=== PATIENT | female | born 1970 | race Caucasian/White ===

== ENCOUNTER 2018-03-10 02:22 | Inpatient (IN) | payer OTHER ==
[~2018-03-10] VITALS: Ht 149.9 cm; Wt 62.1 kg
[2018-03-10 05:00] VITALS: BP 97/58
[2018-03-10] MEDS ORDERED: Z GUARD REMEDY 2 OZ OINT TP PRN (05:30)
[2018-03-10] MEDS ORDERED: MAGNESIUM HYDROXIDE 30 ML UDC PO PRN (05:30)
[2018-03-10] MEDS ORDERED: HYDROCODONE/APAP 5/325MG 1 EACH TABLET PO PRN (05:30)
[2018-03-10] MEDS ORDERED: MAG HYDROX/AL HYDROX/SIMETH 30 ML UDC PO PRN (05:30)
--- NOTE | 2018-03-10 06:00 | NUR ---
RECEIVED PT DIRECT ADMIT FROM [facility] ER, PT ALERT,ORIENTED, AMBULATORY, C/O PAIN IN THE ABDOMEN ,FEVER,NAUSEA. PT CT SEEN WAS COLITIS. PT WITH 8/10 PAIN MORPHINE GIVEN AND ZOFRAN, STARTED IV FLUID, PT GIVEN JELLO AND PT STATED SHE VOMITED FROM IT, SKIN INTACT EXCEPT WITH REDNESS IN THE LEFT LEG FROM SPIDER BITE.,VSS,AFEBRILE,WILL CONTINUE TO MONITOR.
[2018-03-10] MEDS: IV NS 0.9% 1,000 ML IV PRN ×2 (06:27→06:47)
[2018-03-10] MEDS ORDERED: METRONIDAZOLE 500MG/ NS 100ML 100 ML IV ONE (06:36)
[2018-03-10] MEDS: MORPHINE SULFATE INJ 2 MG/ML DISP.SYRIN IV PRN ×3 (06:47→21:16)
[2018-03-10] MEDS: ONDANSETRON HCL/PF 4 MG/2 ML VIAL IVP PRN ×3 (06:47→21:15)
[2018-03-10] MEDS: METRONIDAZOLE 500MG/ NS 100ML 500 MG in PREMIX 1 EA IV SCH ×3 (06:48→17:10)
[2018-03-10 06:49] LABS: BASOPHILS % (AUTO) 0.2 % (0.0-2.0); EOSINOPHILS % (AUTO) 0.2 % (0.0-6.0); HEMATOCRIT 37 % (33-45); HEMOGLOBIN 12.5 g/dL (11.5-14.8); LYMPHOCYTES # (AUTO) 1.1 /CMM (0.8-4.8); LYMPHOCYTES % (AUTO) 12.3 % (20.0-44.0); MEAN CORPUSCULAR HEMOGLOBIN 33 PG (26.0-33.0); MEAN CORPUSCULAR HGB CONC 34 g/dl (31.0-36.0); MEAN CORPUSCULAR VOLUME 99 fL (82-100); MONOCYTES # (AUTO) 0.3 /CMM (0.1-1.30); MONOCYTES % (AUTO) 3.1 % (2.0-12.0); NEUTROPHILS # (AUTO) 7.8 /CMM (1.8-8.9); NEUTROPHILS % (AUTO) 84.2 % (43.0-81.0); PLATELET COUNT (AUTO) 123 /CMM (150-450); RDW COEFFICIENT OF VARIATION 12.2 (11.5-15.0); RED BLOOD CELL COUNT(AUTO) 3.73 MIL/uL (4.0-5.2); WHITE BLOOD COUNT (AUTO) 9.3 K/uL (4.3-11.0)
[2018-03-10 07:06] LABS: CALCIUM, SERUM 7.6 mg/dL (8.5-10.1); CREATININE 0.7 mg/dL (0.6-1.3); POTASSIUM 3.3 mmol/L (3.5-5.1)
[2018-03-10 07:10] LABS: THYROID STIMULATING HORMONE 1.134 uIU/mL (0.358-3.74)
[2018-03-10 07:16] LABS: ALBUMIN 3.3 g/dL (3.4-5.0); BILIRUBIN,TOTAL 0.5 mg/dL (0.2-1.0); MAGNESIUM 1.8 mg/dL (1.8-2.4); PHOSPHORUS 3.7 mg/dL (2.5-4.9); TOTAL PROTEIN, SERUM 7.1 g/dL (6.4-8.2)
--- NOTE | 2018-03-10 07:40 | NUR ---
MS RN OPENING NOTES RECEIVED PT LAYING IN BED SLEEPING COMFORTABLY. PT IS EASILY AROUSABLE. A/O X4, AFEBRILE. RESPIRATIONS ARE EVEN AND UNLABORED, NOT IN ANY ACUTE DISTRESS NOTED. NO C/O SOB, NO N/V NOTED. PT STATES PAIN IS TOLERABLE AND WILL WAIT FOR WHEN THE NEXT PAIN MEDICATION IS DUE. IV SITE TO RAC INTACT, DRESSING KEPT CLEAN AND DRY. NO INFILTRATION NOTED. IV FLUIDS INFUSING AT 75MLHR, DRESSING KEPT CLEAN AND DRY. NO INFILTRATION NOTED. SAFETY MEASURES ARE IN PLACE. INSTRUCTED PT TO USE CALL LIGHT WHEN ASSISTANCE IS NEEDED, CALL LIGHT IS LEFT WITHIN REACH. WILL CONTINUE TO MONITOR THROUGHOUT SHIFT FOR CONTINUITY OF CARE.
[2018-03-10 08:00] VITALS: BP 91/51
[2018-03-10] MEDS: CEFTRIAXONE 1 G in IV NS 0.9% 50 ML IV SCH (08:29)
[2018-03-10] MEDS: POTASSIUM CHLORIDE 20 MEQ POWDER PACKET PO SCH ×2 (11:09→11:14)
[2018-03-10] MEDS: ACETAMINOPHEN 325 MG TABLET PO PRN (15:23)
[2018-03-10 16:00] VITALS: BP 85/46
--- NOTE | 2018-03-10 18:27 | NUR ---
MS RN CLOSING NOTES ALL DUE MEDS GIVEN, NEEDS MET AND RENDERED. PT IS MED COMPLIANT. PT REMAINS A/O X4, RESPIRATIONS ARE EVEN AND UNLABORED, NOT IN ANY ACUTE DISTRESS NOTED. NO C/O SOB, N/V. PT ABLE TO MAKE NEEDS KNOWN. IV SITE INTACT, NO INFILTRATION NOTED. DRESSING KEPT CLEAN AND DRY. IV FLUIDS INFUSING AT 75ML/HR, TOLERATING WELL. 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 SAFETY MEASURES ARE IN PLACE. REMINDED PT TO USE CALL LIGHT WHEN ASSISTANCE IS NEEDED, CALL LIGHT IS LEFT WITHIN REACH. WILL ENDORSE TO NEXT SHIFT FOR CONTINUITY OF CARE.
--- NOTE | 2018-03-10 19:05 | NUR ---
MS RN NOTES Report received. Patient received in bed, resting comfortably, easily aroused. Alert and oriented x4, verbally responsive. Denies any pain at the moment. Offered assistance but patient stated, "I just want to rest." IV on right AC with NS @75ml/hr noted. On antibiotic treatment. Safety measures in place. will continue to monitor and assess patient
[2018-03-10 22:13] VITALS: BP 105/58
[2018-03-10 23:37] LABS: APPEARANCE,URINE CLEAR (CLEAR); BILIRUBIN,URINE NEGATIVE (NEGATIVE); BLOOD, URINE NEGATIVE Ery/uL (NEGATIVE); COLOR,URINE YELLOW (YELLOW); KETONES,URINE NEGATIVE (NEGATIVE); LEUKOCYTE ESTERASE ,URINE NEGATIVE (NEGATIVE); NITRITE, URINE NEGATIVE (NEGATIVE); PROTEIN,URINE NEGATIVE (NEGATIVE); UGLUCOSE NEGATIVE (NEGATIVE); UROBILINOGEN,URINE 0.2 EU/dL (0.2)
[2018-03-11] MEDS: METRONIDAZOLE 500MG/ NS 100ML 500 MG in PREMIX 1 EA IV SCH ×5 (00:06→23:28)
[2018-03-11] MEDS: IV NS 0.9% 1,000 ML IV PRN ×2 (00:06→17:22)
[2018-03-11] MEDS: ACETAMINOPHEN 325 MG TABLET PO PRN (00:06)
--- NOTE | 2018-03-11 00:16 | NUR ---
MS RN - PRN NOTES Patient complained of feeling warm. Checked temp = 99.9F. Patient requested for tylenol now so that she could go to sleep and rest. Tylenol 650mg PO given. Will recheck temp
[2018-03-11] MEDS: ONDANSETRON HCL/PF 4 MG/2 ML VIAL IVP PRN ×3 (03:45→16:54)
--- NOTE | 2018-03-11 05:37 | NUR ---
MS RN NOTES Patient in bed, resting, easily aroused. Alert and oriented x4, verbally responsive. Patient continues to complain of nausea and pain (slightly improved with morphine). Patient able to state desire and needs. Continue on antibiotic treatment and hydration for colitis/sepsis and pain mgmt for fibromyalgia as planned. Continue clear liquids, advance as tolerated. IV on right antecubital 20g: patent and intact with NS @75ml/hr running. All needs provided and met. Safety measures in place. Bed in lowest position with call light within reach. Will continue to monitor and assess patient
[2018-03-11] MEDS: MORPHINE SULFATE INJ 2 MG/ML DISP.SYRIN IV PRN (05:55)
[2018-03-11 06:48] LABS: CREATININE 0.8 mg/dL (0.6-1.3); MAGNESIUM 1.8 mg/dL (1.8-2.4); PHOSPHORUS 3.5 mg/dL (2.5-4.9); POTASSIUM 3.4 mmol/L (3.5-5.1)
[2018-03-11] MEDS: CEFTRIAXONE 1 G in IV NS 0.9% 50 ML IV SCH (06:55)
[2018-03-11 07:03] LABS: BASOPHILS % (AUTO) 0.3 % (0.0-2.0); EOSINOPHILS % (AUTO) 0.3 % (0.0-6.0); HEMATOCRIT 33 % (33-45); HEMOGLOBIN 11.2 g/dL (11.5-14.8); LYMPHOCYTES # (AUTO) 1.2 /CMM (0.8-4.8); LYMPHOCYTES % (AUTO) 17.4 % (20.0-44.0); MEAN CORPUSCULAR HEMOGLOBIN 34 PG (26.0-33.0); MEAN CORPUSCULAR HGB CONC 34 g/dl (31.0-36.0); MEAN CORPUSCULAR VOLUME 99 fL (82-100); MONOCYTES # (AUTO) 0.6 /CMM (0.1-1.30); MONOCYTES % (AUTO) 9.2 % (2.0-12.0); NEUTROPHILS # (AUTO) 4.9 /CMM (1.8-8.9); NEUTROPHILS % (AUTO) 72.8 % (43.0-81.0); PLATELET COUNT (AUTO) 118 /CMM (150-450); RDW COEFFICIENT OF VARIATION 12.6 (11.5-15.0); WHITE BLOOD COUNT (AUTO) 6.7 K/uL (4.3-11.0)
--- NOTE | 2018-03-11 07:20 | NUR ---
RN OPENING NOTES RECEIVED PATIENT IN STABLE CONDITION, RESTING IN BED, A/OX4, ABLE TO VERBALIZE NEEDS. NO ACUTE DISTRESS, NO SOB. PATIENT CONTINUES TO COMPLAIN OF PAIN (JUST ADMINISTERED PAIN MEDS PER NIGHT RN), PER PATIENT PAIN MEDICATION IS NOT EFFECTIVE, WILL NOTIFY MD. IV SITE INTACT AND PATENT, IVF INFUSING @ 75 ML/HR. KEPT PATIENT SAFE AND COMFORTABLE. BED IN LOW/LOCKED POSITION, SIDERAILS UPX2, CALL LIGHT IN REACH. WILL CONTINUE TO MONITOR ACCORDINGLY.
--- NOTE | 2018-03-11 07:28 | NUR ---
MS RN CLOSING NOTES All needs provided and met. Patient continues to complain of pain and nausea. Safety measures in place. Report endorsed to ANA Agee.
[2018-03-11 08:00] VITALS: BP 93/51
[2018-03-11] MEDS ORDERED: POTASSIUM CHLORIDE 20 MEQ POWDER PACKET PO SCH (10:15)
[2018-03-11] MEDS: TRAMADOL HCL 50 MG TABLET PO PRN ×2 (10:39→16:55)
[2018-03-11] MEDS ORDERED: CT SWABBABLE VALVE TRANS SET 1 EA INFUS.SET MC ONE (12:52)
[2018-03-11] MEDS ORDERED: IV NS 0.9% 250 ML IV ONE (12:52)
[2018-03-11] MEDS ORDERED: IOHEXOL-300 100 ML VIAL IV ONE (12:52)
[2018-03-11] MEDS ORDERED: MORPHINE SULFATE INJ 2 MG/ML DISP.SYRIN IV PRN (13:30)
[2018-03-11 16:00] VITALS: BP 117/70
--- NOTE | 2018-03-11 19:27 | NUR ---
RN CLOSING NOTES PATIENT IN STABLE CONDITION. ALL NEEDS ATTENDED AND PROVIDED. KEPT PATIENT SAFE AND COMFORTABLE. ALL DUE MEDS GIVEN ORDERED. PAIN MEDICATIONS GIVEN ORDERED. BED IN LOW/LOCKED POSITION, SIDERAILS UPX2, CALL LIGHT IN REACH. ENDORSED TO NIGHT RN FOR ALEAH.
--- NOTE | 2018-03-11 19:41 | NUR ---
MS RN INITIAL NOTES Report received at bedside. Patient received in bed, awake and resting. Alert and oriented x4, verbally responsive. Patient verbalized the effectiveness of Ultram. CT of the abdomen done today. Awaiting for further order/instructions from MD. IV on right AC with NS@75ml/hr running, tolerating well. Safety measures in place. Will continue to monitor and assess patient.
[2018-03-11 20:00] VITALS: BP 111/71
[2018-03-11] MEDS: METOCLOPRAMIDE HCL 10 MG/2 ML VIAL IV PRN (22:31)
--- NOTE | 2018-03-11 22:35 | NUR ---
MS RN NOTES IV site cleaned and dressing changed
[2018-03-12] MEDS: TRAMADOL HCL 50 MG TABLET PO PRN ×3 (04:14→23:42)
[2018-03-12] MEDS: METOCLOPRAMIDE HCL 10 MG/2 ML VIAL IV PRN ×3 (04:14→23:42)
[2018-03-12] MEDS: METRONIDAZOLE 500MG/ NS 100ML 500 MG in PREMIX 1 EA IV SCH ×3 (05:20→17:33)
--- NOTE | 2018-03-12 05:39 | NUR ---
MS RN NOTES Patient currently sleeping, easily aroused. No moaning or facial grimacing noted. Last pain mgmt and Nausea relief given @0415. No SOB or labored breathing noted. Not in any type of distress. Continue hospitalization, antibiotic tx and clear liquid diet (advance as tolerated) as planned. Afebrile. IV on right AC #20g: patent and intact with NS @75ml/hr running, tolerating well. Safety measures in place. All needs anticipated and met. Bed in lowest position with call light within reach. Will continue to monitor patient
--- NOTE | 2018-03-12 06:48 | NUR ---
MS RN NOTES Patient is alert and oriented x4, verbally responsive. Ambulatory as desire/as needed with BRP. Asked patient if she had any bowel movement during my shift. Patient stated, "I had at least 5 diarrheas since yesterday noon." Provided patient a sterile sample cup for stool sample. Informed patient to report any changes in condition. Patient stated that she wasn't aware but will report any changes in condition. Charge nurse made aware. Per charge nurse, no need to do C-diff testing/precaution. Diarrhea is most likely due to her disease and clear liquid diet. Will endorse to oncoming shift nurse
[2018-03-12 07:03] LABS: BASOPHILS % (AUTO) 0.4 % (0.0-2.0); EOSINOPHILS % (AUTO) 0.7 % (0.0-6.0); HEMATOCRIT 35 % (33-45); HEMOGLOBIN 11.8 g/dL (11.5-14.8); LYMPHOCYTES # (AUTO) 0.9 /CMM (0.8-4.8); LYMPHOCYTES % (AUTO) 17.3 % (20.0-44.0); MEAN CORPUSCULAR HEMOGLOBIN 34 PG (26.0-33.0); MEAN CORPUSCULAR HGB CONC 34 g/dl (31.0-36.0); MEAN CORPUSCULAR VOLUME 99 fL (82-100); MONOCYTES # (AUTO) 0.4 /CMM (0.1-1.30); MONOCYTES % (AUTO) 8.3 % (2.0-12.0); NEUTROPHILS % (AUTO) 73.3 % (43.0-81.0); PLATELET COUNT (AUTO) 127 /CMM (150-450); RDW COEFFICIENT OF VARIATION 12.4 (11.5-15.0); WHITE BLOOD COUNT (AUTO) 5.4 K/uL (4.3-11.0)
[2018-03-12] MEDS: CEFTRIAXONE 1 G in IV NS 0.9% 50 ML IV SCH (07:14)
[2018-03-12 07:18] LABS: CALCIUM, SERUM 7.8 mg/dL (8.5-10.1); CREATININE 0.7 mg/dL (0.6-1.3); MAGNESIUM 1.8 mg/dL (1.8-2.4); PHOSPHORUS 3.1 mg/dL (2.5-4.9); POTASSIUM 3.1 mmol/L (3.5-5.1)
--- NOTE | 2018-03-12 07:21 | NUR ---
MS RN CLOSING NOTES Patient remained in bed. No changes noted or reported. Safety measures in place. Report given to ANA Agee.
--- NOTE | 2018-03-12 07:32 | NUR ---
RN OPENING NOTES RECEIVED PATIENT IN STABLE CONDITION, RESTING IN BED, A/OX4, ABLE TO VERBALIZE NEEDS. NO ACUTE DISTRESS, NO SOB. NO COMPLAINTS OF PAIN OF DISCOMFORT AT THE MOMENT. IV SITE INTACT AND PATENT, IVF INFUSING @ 75 ML/HR. KEPT PATIENT SAFE AND COMFORTABLE. BED IN LOW/LOCKED POSITION, SIDERAILS UPX2, CALL LIGHT IN REACH. WILL CONTINUE TO MONITOR ACCORDINGLY.
[2018-03-12 08:00] VITALS: BP 105/62
[2018-03-12] MEDS ORDERED: METRONIDAZOLE 250 MG TABLET PO SCH (12:00)
[2018-03-12] MEDS ORDERED: POTASSIUM CHLORIDE 20 MEQ POWDER PACKET PO SCH (12:30)
[2018-03-12] MEDS ORDERED: POTASSIUM CHLORIDE 10 MEQ/50 ML PREMIXED IVPB FOR PERIPHERAL LINE IV ONE (12:30)
[2018-03-12] MEDS: POTASSIUM CL. PREMIX PERIPHER. 50 ML IV SCH ×2 (13:52→15:52)
[2018-03-12] MEDS: IV NS 0.9% 1,000 ML IV PRN (14:22)
[2018-03-12 16:00] VITALS: BP 115/66
--- NOTE | 2018-03-12 17:44 | NUR ---
URINE SAMPLE COLLECTED FOR TEST. CALLED LAB FOR CO FOUNDER AND CTO.
--- NOTE | 2018-03-12 17:44 | NUR ---
RN NOTES: GI CONSULT DR SOMMERS TALKED TO THE PATIENT. PER DR SOMMERS, NO NEED FOR COLOSTOMY AT THE MOMENT, VERBAL ORDER TO COLLECT STOOL SAMPLE FOR CDIFF.
--- NOTE | 2018-03-12 19:18 | NUR ---
MS RN INITIAL NOTES Report received at bedside. Patient received in bed, awake and resting. Alert and oriented x4, verbally responsive. IV on right AC with NS@75ml/hr running, tolerating well. Verbalized decreased pain and minimal nausea at the moment. On clear liquids diet only. Safety measures in place. Will continue to monitor and assess patient.
[2018-03-12 19:57] VITALS: BP 108/62
[2018-03-13] MEDS: METRONIDAZOLE 500MG/ NS 100ML 500 MG in PREMIX 1 EA IV SCH ×5 (00:04→23:22)
[2018-03-13] MEDS: IV NS 0.9% 1,000 ML IV PRN ×2 (02:41→21:34)
[2018-03-13] MEDS: ACETAMINOPHEN 325 MG TABLET PO PRN (04:23)
[2018-03-13] MEDS: ONDANSETRON HCL/PF 4 MG/2 ML VIAL IVP PRN (04:32)
[2018-03-13] MEDS: TRAMADOL HCL 50 MG TABLET PO PRN ×3 (06:07→23:20)
[2018-03-13] MEDS: CEFTRIAXONE 1 G in IV NS 0.9% 50 ML IV SCH (07:14)
[2018-03-13 07:23] LABS: CREATININE 0.6 mg/dL (0.6-1.3); POTASSIUM 3.2 mmol/L (3.5-5.1)
--- NOTE | 2018-03-13 07:30 | NUR ---
MS RN CLOSING NOTES Patient remained in bed, intermittently sleeping, easily aroused. Alert and oriented x4, verbally responsive, ambulatory with steady gait. Patient complained of new onset right lateral abdominal pain with slight help of Ultram. IV on right AC #20g: patent and intact with NS@75 ml/hr, tolerating well. Antibiotics given. Continue on clear liquids. Safety measures in place. Bed locked, in lowest position with call light within reach. Weight loss reported to RN but patient stated, "I have nevern been 140s. I've always been on 130s." Report endorsed to ANA Shah.
--- NOTE | 2018-03-13 07:56 | NUR ---
MS RN OPENING NOTES RECEIVED PT FROM NIGHTSHIFT NURSE IN STABLE CONDITION. PT IS A/O X4. NO SOB NOTED. BREATHING IS EVEN AND UNLABORED. PT ON RA AND SATING WELL. SHE COMPLAINS OF RIGHT SIDED ABDOMINAL PAIN RATED AND 8/10 ALONG WITH NAUSEA. WILL ADMINISTER PRN ANTIEMETIC EMETICS AND PAIN MEDICATION WHEN DUE. SHE DENIES ANY DIARRHEA AT THIS TIME AND NONE NOTED DURING THE NIGHT. IV TO RIGHT AC NOTED TO BE PATENT AND INTACT. PT TOLERATING NS INFUSION WELL. BED IN LOW LOCKED POSITION, SIDE RAILS UP X2, CALL LIGHT WITHIN REACH. WILL CONTINUE TO MONITOR
[2018-03-13 08:00] VITALS: BP 116/74
[2018-03-13] MEDS: METOCLOPRAMIDE HCL 10 MG/2 ML VIAL IV PRN ×2 (08:19→23:21)
--- NOTE | 2018-03-13 11:16 | NUR ---
MS RN NOTES: DIET ORDERS PER PHARMACEUTICAL COMPOUNDING SUPERVISOR, "PT'S DIET CAN BE ADVANCED TO SOFT DIET. IF TOLERATED WELL, THEN IT CAN BE ADVANCED TO REGULAR"
--- NOTE | 2018-03-13 11:17 | NUR ---
PASTRY FINISHER GIVEN VERBAL ORDER FOR PT TO TAKE A SHOWER
[2018-03-13] MEDS ORDERED: POTASSIUM CHLORIDE 20 MEQ TAB.PRT.SR PO SCH (11:30)
[2018-03-13] MEDS ORDERED: POTASSIUM CHLORIDE 20 MEQ POWDER PACKET PO SCH (11:30)
[2018-03-13] MEDS: POTASSIUM CL. PREMIX PERIPHER. 50 ML IV SCH ×4 (13:19→18:19)
[2018-03-13 16:00] VITALS: BP 112/76
--- NOTE | 2018-03-13 18:35 | NUR ---
MS RN CLOSING NOTES PT REMAINS STABLE. ALL NEEDS MET DURING SHIFT AND ORDERS CARRIED OUT ACCORDINGLY. ALL DUE MEDS GIVEN. PAIN PROPERLY MANAGED WITH PO MEDICATIONS. PT DENIES ANY PAIN AT THIS TIME NOR ANY NAUSEA. NO DIARRHEA THROUGHOUT SHIFT. SAFTEY MEASURES REMAIN IN PLACE. WILL ENDORSE TO NIGHTSHIFT NURSE FOR ALEAH
--- NOTE | 2018-03-13 19:30 | NUR ---
RN NOTES RECEIVED PT. AWAKE SITTING IN HER CHAIR, WATCHING TV, IV FLUID RUNNING @ 75 ML/HR, DENIES PAIN, NO OSB, CALL LIGHT WITHIN REACH, SIDERAILSUPX2, CONTINUE TO MONITOR
[2018-03-13 20:00] VITALS: BP 101/67
--- NOTE | 2018-03-13 23:30 | NUR ---
RN NOTES PT. COMPLAINED OF ABDOMINAL PAIN AND FEELING NAUSEOUS- ULTRAM 50MG PO GIVEN AND REGLAN 10MG IV GIVEN ORDERED, V/S STABLE
[2018-03-14] MEDS: METRONIDAZOLE 500MG/ NS 100ML 500 MG in PREMIX 1 EA IV SCH ×2 (05:24→12:12)
[2018-03-14] MEDS: METOCLOPRAMIDE HCL 10 MG/2 ML VIAL IV PRN (05:47)
[2018-03-14] MEDS: TRAMADOL HCL 50 MG TABLET PO PRN (05:47)
--- NOTE | 2018-03-14 05:51 | NUR ---
rn notes complained of abdominal pain and feeling nauseous- ultram 50mg po and reglan 10mg iv given as ordered, v/s stable
--- NOTE | 2018-03-14 06:26 | NUR ---
RN NOTES AWAKE, WATCHING TV, PAIN IS TOLERABLE AT THIS TIME, NO N/V, MORNING CARE RENDERED, CALL LIGHT WITHIN REACH, SIDERAILSUPX2, PT. NEEDS ATTENDED
[2018-03-14] MEDS: CEFTRIAXONE 1 G in IV NS 0.9% 50 ML IV SCH (06:46)
[2018-03-14 07:30] LABS: CREATININE 0.7 mg/dL (0.6-1.3); POTASSIUM 3.5 mmol/L (3.5-5.1)
--- NOTE | 2018-03-14 07:51 | NUR ---
MS RN OPENING NOTES RECEIVED PT FROM NIGHTSHIFT NURSE IN STABLE CONDITION. PT IS A/O X4. NO SOB NOTED. BREATHING IS EVEN AND UNLABORED. PT ON RA AND SATING WELL. SHE DENIES ANY PAIN, NAUSEA, VOMITING, OR DIARRHEA AT THIS TIME. IV TO RIGHT AC NOTED TO BE PATENT AND INTACT. PT TOLERATING NS INFUSION WELL. BED IN LOW LOCKED POSITION, SIDE RAILS UP X2, CALL LIGHT WITHIN REACH. WILL CONTINUE TO MONITOR
[2018-03-14 08:00] VITALS: BP 98/60
[2018-03-14] MEDS: ACETAMINOPHEN 325 MG TABLET PO PRN (10:35)
[2018-03-14] MEDS ORDERED: LEVO500T75 PO (11:50)
[2018-03-14] MEDS ORDERED: METR500T PO (11:50)
--- NOTE | 2018-03-14 14:06 | NUR ---
MS PATCHER HELPER NOTES PT WAS DISCHARGED FROM FACILITY IN STABLE CONDITION. ALL NEEDS WERE MET DURING SHIFT AND ORDERS CARRIED OUT ACCORDINGLY. ALL DUE MEDS GIVEN. IV WAS SUCCESSFULLY REMOVED WITH CATHETER TIP INTACT. BELONGINGS VERIFIED WITH PT PRIOR TO DISCHARGE. DISCHARGE INSTRUCTIONS REVIEWED WITH PT UTILIZING [employer] MATERIALS. PT VERBALIZED FULL UNDERSTANDING OF DISCHARGE INSTRUCTIONS AND SIGNED ALL PAPERWORK. WRITTEN PRESCRIPTION PROVIDED TO PT. COPIES OF ALL D/C MATERIALS AND PRESCRIPTION PLACED IN PT'S CHART. PT WAS SAFELY ESCORTED TO THE MAIN LOBBY BY THE POLICE SUPERINTENDENT AND LEFT VIA PRIVATE VEHICLE ACCOMPANIED BY HER SON.
== END 2018-03-14 13:30 | disposition home or self-care (01) | DRG 248 ==
LOC: MED 04:18
PROVIDERS: ADMIT Nurse Practitioner Acute Care; ATTEND Nurse Practitioner Acute Care
DX: A04.9 Bacterial intestinal infection, unspecified (principal); D69.6 Thrombocytopenia, unspecified; E44.0 Moderate protein-calorie malnutrition; M35.00 Sjogren syndrome, unspecified; E88.09 Other disorders of plasma-protein metabolism, not elsewhere classified; E87.6 Hypokalemia; G89.4 Chronic pain syndrome; M79.7 Fibromyalgia; Z68.27 Body mass index [BMI] 27.0-27.9, adult; Z79.1 Long term (current) use of non-steroidal anti-inflammatories (NSAID)
CPT/HCPCS: 36415; 71046; 80048-TC; 80053-TC; 80061-TC; 81000-TC; 83605-TC; 83735-TC; 84100-TC; 84443-TC; 84703-TC; 85025-TC; 87040-TC; 87045-TC; 87081-TC; A4216; A4606; J0696; J2270; J2405; J2765; J3480; J3490; J7030; J7050; Q9967; Z7610